=== PATIENT | male | born 1940 | race Caucasian/White ===

== ENCOUNTER 2025-04-30 11:27 | Inpatient (IN) ==
[2025-04-30 12:27] LABS: Basophils # (Auto) 0.01 K/mcL (0.00-0.30); Basophils % (Auto) 0.1 % (0.0-2.0); Eosinophils # (Auto) 0 K/mcL (0.00-0.70); Eosinophils % (Auto) 0 % (0.0-7.0); Hematocrit 42.5 % (40.1-51.0); Hemoglobin 14.5 g/dL (13.7-17.5); Lymphocytes # (Auto) 0.40 K/mcL (1.50-4.80); Lymphocytes % (Auto) 3.1 % (15.5-49.0); Mean Corpuscular HGB Conc 34.1 g/dL (31.0-36.0); Monocytes # (Auto) 1.09 K/mcL (0.10-0.90); Monocytes % (Auto) 8.5 % (1.0-12.0); Neutrophils % (Auto) 87.8 % (38.0-78.0); Platelet Count 134 K/mcL (140-440); RBC 4.38 M/mcL (4.63-6.08); WBC 12.8 K/mcL (4.5-11.0)
[2025-04-30] MEDS: ACETAMINOPHEN 1,000 MG/100 ML BAG IV ONE (12:32)
[2025-04-30] MEDS: CEFEPIME 1 GM VIAL IV ONE (12:57)
[2025-04-30 13:01] LABS: ALT/SGPT 20 U/L (<40); AST/SGOT 22 U/L (<40); Albumin 3.8 gm/dL (3.2-5.2); Albumin/Globulin Ratio 1.2 (1.0-2.3); Alkaline Phosphatase 136 U/L (39-117); Anion Gap 16.0 (8.0-16.0); Bilirubin,Total 0.6 mg/dL (0.1-1.0); Blood Urea Nitrogen 31 mg/dL (8-23); Calcium 8.4 mg/dL (8.6-10.4); Carbon Dioxide 20 mmol/L (22-30); Chloride 104 mmol/L (96-108); Globulin 3.1 gm/dL (2.2-3.7); Glucose 151 mg/dL (70-105); Potassium 3.7 mmol/L (3.3-5.1); Sodium 140 mmol/L (133-145)
[2025-04-30] MEDS: VANCOMYCIN 2,000 MG in 0.9 % SODIUM CHLORIDE 500 ML IV ONE ×2 (13:30→13:31)
[2025-04-30] MEDS ORDERED: LACTULOSE 20 GM/30 ML ORAL.SOL PO PRN (17:16)
[2025-04-30] MEDS ORDERED: SENNOSIDES 1 TABLET PO SCH (17:16)
[2025-04-30] MEDS: cefTRIAXone 2 GM in DEXTROSE 5% IN WATER 50 ML IV SCH (17:48)
[2025-04-30] MEDS: ONDANSETRON 4 MG/2 ML VIAL IV PRN (18:39)
[2025-04-30] MEDS: LACTATED RINGERS 1,000 ML IV SCH ×2 (18:41→19:05)
[2025-04-30] MEDS: cefTRIAXone 1 GM VIAL IV SCH (18:46)
[2025-04-30] MEDS: IPRATROPIUM/ALBUTEROL 3 ML AMPUL.NEB NEB PRN (18:56)
[2025-04-30] MEDS: IPRATROPIUM/ALBUTEROL 3 ML AMPUL.NEB NEB ONE (19:00)
[2025-04-30] MEDS: BETHANECHOL 10 MG TABLET PO SCH (20:05)
[2025-04-30] MEDS: DOXYCYCLINE 100 MG in DEXTROSE 5% IN WATER 100 ML IV SCH (20:05)
[2025-04-30] MEDS: 0.9 % SODIUM CHLORIDE 10 ML SYRINGE IV SCH (20:05)
[2025-04-30] MEDS: APIXABAN 5 MG TABLET PO SCH (20:05)
[2025-04-30] MEDS: DOCUSATE SODIUM 100 MG CAPSULE PO SCH (20:05)
[2025-04-30] MEDS: INSULIN REGULAR, HUMAN 1 UNIT/0.01 ML UNIT IV ONE (20:24)
[2025-04-30] MEDS: 0.9 % SODIUM CHLORIDE 500 ML IV ONE ×2 (22:06→22:58)
[2025-04-30 22:56] LABS: Bacteria,Urine Many /hpf (0); Bilirubin,Urine Negative (Negative); Color,Urine Yellow; Glucose,Urine (UA) Negative (Negative); Ketones,Urine Negative (Negative); Leukocyte Esterase,Urine Moderate /uL (Negative); Mucus,Urine Mod /hpf; PH,Urine 5.5 (5.0-9.0); Protein,Urine 100 mg/dL (Negative); Specific Gravity,Urine 1.020 (1.000-1.035); Urobilinogen,Urine Normal
[2025-04-30] MEDS ORDERED: NOREPINEPHRINE 250 ML IV PRN (23:45)
[2025-05-01] MEDS: 0.9 % SODIUM CHLORIDE 250 ML IV SCH (01:00)
[2025-05-01] MEDS: LACTATED RINGERS 1,000 ML IV SCH (01:00)
[2025-05-01] MEDS: CEFEPIME 1 GM VIAL IV ONE (01:01)
[2025-05-01] MEDS: POTASSIUM CHLORIDE 20 MEQ/10 ML VIAL IV ONE (01:03)
[2025-05-01 06:40] LABS: Basophils # (Auto) 0.01 K/mcL (0.00-0.30); Basophils % (Auto) 0.1 % (0.0-2.0); Eosinophils # (Auto) 0.03 K/mcL (0.00-0.70); Eosinophils % (Auto) 0.3 % (0.0-7.0); Hematocrit 35.1 % (40.1-51.0); Hemoglobin 11.4 g/dL (13.7-17.5); Lymphocytes # (Auto) 1.12 K/mcL (1.50-4.80); Lymphocytes % (Auto) 9.6 % (15.5-49.0); Mean Corpuscular HGB Conc 32.5 g/dL (31.0-36.0); Monocytes # (Auto) 0.93 K/mcL (0.10-0.90); Monocytes % (Auto) 8.0 % (1.0-12.0); Neutrophils % (Auto) 81.7 % (38.0-78.0); Platelet Count 96 K/mcL (140-440); RBC 3.39 M/mcL (4.63-6.08); WBC 11.7 K/mcL (4.5-11.0)
[2025-05-01 06:56] LABS: ALT/SGPT 16 U/L (<40); AST/SGOT 22 U/L (<40); Albumin 3.1 gm/dL (3.2-5.2); Albumin/Globulin Ratio 1.2 (1.0-2.3); Alkaline Phosphatase 97 U/L (39-117); Anion Gap 14.0 (8.0-16.0); Bilirubin,Direct 0.2 mg/dL (<0.3); Bilirubin,Total 0.4 mg/dL (0.1-1.0); Blood Urea Nitrogen 34 mg/dL (8-23); C-Reactive Protein 26.20 mg/dL (0.03-0.80); Calcium 7.9 mg/dL (8.6-10.4); Carbon Dioxide 20 mmol/L (22-30); Chloride 109 mmol/L (96-108); Globulin 2.6 gm/dL (2.2-3.7); Glucose 116 mg/dL (70-105); Phosphorous 3.2 mg/dL (2.5-4.5); Potassium 4.4 mmol/L (3.3-5.1); Sodium 143 mmol/L (133-145); Triglycerides 91 mg/dL (<150); Uric Acid 8.0 mg/dL (2.5-8.0)
[2025-05-01] MEDS: HYDROCORTISONE SOD SUCC 100 MG VIAL IV SCH (08:01)
[2025-05-01] MEDS: ALLOPURINOL 100 MG TABLET PO SCH (08:39)
[2025-05-01] MEDS: ATORVASTATIN 40 MG TABLET PO SCH (08:39)
[2025-05-01] MEDS: CEFEPIME 2 GM VIAL IV SCH (08:39)
[2025-05-01] MEDS: VENLAFAXINE 37.5 MG TABLET PO SCH (08:40)
[2025-05-01] MEDS: POLYETHYLENE GLYCOL 3350 17 GM PACKET PO SCH (08:40)
[2025-05-02 06:48] LABS: ALT/SGPT 32 U/L (<40); AST/SGOT 38 U/L (<40); Albumin 3.2 gm/dL (3.2-5.2); Albumin/Globulin Ratio 1.3 (1.0-2.3); Alkaline Phosphatase 91 U/L (39-117); Anion Gap 12.0 (8.0-16.0); Bilirubin,Direct 0.2 mg/dL (<0.3); Bilirubin,Total 0.4 mg/dL (0.1-1.0); Blood Urea Nitrogen 32 mg/dL (8-23); Calcium 8.2 mg/dL (8.6-10.4); Carbon Dioxide 20 mmol/L (22-30); Chloride 108 mmol/L (96-108); Globulin 2.5 gm/dL (2.2-3.7); Glucose 104 mg/dL (70-105); Phosphorous 2.2 mg/dL (2.5-4.5); Potassium 3.8 mmol/L (3.3-5.1); Sodium 140 mmol/L (133-145); Triglycerides 138 mg/dL (<150); Uric Acid 7.3 mg/dL (2.5-8.0)
[2025-05-02 06:59] LABS: Basophils # (Auto) 0.01 K/mcL (0.00-0.30); Basophils % (Auto) 0.2 % (0.0-2.0); Eosinophils # (Auto) 0.10 K/mcL (0.00-0.70); Eosinophils % (Auto) 1.5 % (0.0-7.0); Hematocrit 31.7 % (40.1-51.0); Hemoglobin 10.7 g/dL (13.7-17.5); Lymphocytes # (Auto) 0.68 K/mcL (1.50-4.80); Lymphocytes % (Auto) 10.2 % (15.5-49.0); Mean Corpuscular HGB Conc 33.8 g/dL (31.0-36.0); Monocytes # (Auto) 0.64 K/mcL (0.10-0.90); Monocytes % (Auto) 9.6 % (1.0-12.0); Neutrophils % (Auto) 78.3 % (38.0-78.0); Platelet Count 96 K/mcL (140-440); RBC 3.20 M/mcL (4.63-6.08); WBC 6.7 K/mcL (4.5-11.0)
[2025-05-02] MEDS: BISACODYL 10 MG SUPP.RECT PR PRN (11:54)
[2025-05-02] MEDS: MAGNESIUM CITRATE 300 ML ORAL.SOL PO SCH (13:59)
[2025-05-02] MEDS: LEVOFLOXACIN 750 MG/150 ML BAG IV SCH (16:38)
[2025-05-03 06:36] LABS: Basophils # (Auto) 0.01 K/mcL (0.00-0.30); Basophils % (Auto) 0.2 % (0.0-2.0); Eosinophils # (Auto) 0.10 K/mcL (0.00-0.70); Eosinophils % (Auto) 1.7 % (0.0-7.0); Hematocrit 32.8 % (40.1-51.0); Hemoglobin 11.2 g/dL (13.7-17.5); Lymphocytes # (Auto) 0.71 K/mcL (1.50-4.80); Lymphocytes % (Auto) 11.9 % (15.5-49.0); Mean Corpuscular HGB Conc 34.1 g/dL (31.0-36.0); Monocytes # (Auto) 0.67 K/mcL (0.10-0.90); Monocytes % (Auto) 11.2 % (1.0-12.0); Neutrophils % (Auto) 74.8 % (38.0-78.0); Platelet Count 113 K/mcL (140-440); RBC 3.37 M/mcL (4.63-6.08); WBC 6.0 K/mcL (4.5-11.0)
[2025-05-03 07:13] LABS: ALT/SGPT 39 U/L (<40); AST/SGOT 41 U/L (<40); Albumin 3.3 gm/dL (3.2-5.2); Albumin/Globulin Ratio 1.3 (1.0-2.3); Alkaline Phosphatase 95 U/L (39-117); Anion Gap 11.0 (8.0-16.0); Bilirubin,Direct 0.2 mg/dL (<0.3); Bilirubin,Total 0.4 mg/dL (0.1-1.0); Blood Urea Nitrogen 24 mg/dL (8-23); Calcium 8.6 mg/dL (8.6-10.4); Carbon Dioxide 22 mmol/L (22-30); Chloride 108 mmol/L (96-108); Globulin 2.5 gm/dL (2.2-3.7); Glucose 102 mg/dL (70-105); Phosphorous 2.0 mg/dL (2.5-4.5); Potassium 4.2 mmol/L (3.3-5.1); Sodium 141 mmol/L (133-145); Triglycerides 139 mg/dL (<150); Uric Acid 6.5 mg/dL (2.5-8.0)
[2025-05-03] MEDS: LEVOFLOXACIN 750 MG TABLET PO SCH (08:12)
[2025-05-03] MEDS ORDERED: LEVOFLOXACIN 750 MG/150 ML BAG IV SCH (09:00)
[2025-05-04] MEDS: BETHANECHOL 25 MG TABLET PO SCH (00:35)
[2025-05-04 06:12] LABS: Basophils # (Auto) 0.02 K/mcL (0.00-0.30); Basophils % (Auto) 0.3 % (0.0-2.0); Eosinophils # (Auto) 0.10 K/mcL (0.00-0.70); Eosinophils % (Auto) 1.6 % (0.0-7.0); Hematocrit 33.5 % (40.1-51.0); Hemoglobin 11.4 g/dL (13.7-17.5); Lymphocytes # (Auto) 0.89 K/mcL (1.50-4.80); Lymphocytes % (Auto) 14.6 % (15.5-49.0); Mean Corpuscular HGB Conc 34.0 g/dL (31.0-36.0); Monocytes # (Auto) 0.63 K/mcL (0.10-0.90); Monocytes % (Auto) 10.3 % (1.0-12.0); Neutrophils % (Auto) 72.9 % (38.0-78.0); Platelet Count 119 K/mcL (140-440); RBC 3.45 M/mcL (4.63-6.08); WBC 6.1 K/mcL (4.5-11.0)
[2025-05-04 06:29] LABS: ALT/SGPT 34 U/L (<40); AST/SGOT 34 U/L (<40); Albumin 3.3 gm/dL (3.2-5.2); Albumin/Globulin Ratio 1.3 (1.0-2.3); Alkaline Phosphatase 103 U/L (39-117); Anion Gap 12.0 (8.0-16.0); Bilirubin,Direct 0.2 mg/dL (<0.3); Bilirubin,Total 0.4 mg/dL (0.1-1.0); Blood Urea Nitrogen 20 mg/dL (8-23); Calcium 8.5 mg/dL (8.6-10.4); Carbon Dioxide 23 mmol/L (22-30); Chloride 104 mmol/L (96-108); Globulin 2.6 gm/dL (2.2-3.7); Glucose 98 mg/dL (70-105); Phosphorous 1.9 mg/dL (2.5-4.5); Potassium 3.9 mmol/L (3.3-5.1); Sodium 139 mmol/L (133-145); Triglycerides 148 mg/dL (<150); Uric Acid 5.8 mg/dL (2.5-8.0)
[2025-05-04] MEDS: LISINOPRIL 20 MG TABLET PO SCH (08:33)
[2025-05-04] MEDS: HYDROCHLOROTHIAZIDE 12.5 MG CAPSULE PO SCH (08:34)
[2025-05-04] MEDS: BETHANECHOL 10 MG TABLET PO SCH (08:34)
[2025-05-04 11:15] VITALS: TEMP 98.1; O2SAT 99
[2025-05-04] MEDS: LEVOFLOXACIN 750 MG TABLET PO SCH (11:49)
[2025-05-04] MEDS: NEUTRA PHOS 1 PACKET PO SCH (11:49)
[2025-05-04] MEDS: SODIUM PHOSPHATE 30 MMOL in DEXTROSE 5% IN WATER 500 ML IV ONE (12:08)
[2025-05-04] MEDS: NEUTRA PHOS 1 PACKET PO ONE (12:10)
== END 2025-05-04 15:42 | DRG 871 ==
LOC: ED 11:27 → ICU 17:13 → MEDSUR 05-03 22:45
PROVIDERS: ADMIT Student in an Organized Health Care Education/Training Program; ATTEND Student in an Organized Health Care Education/Training Program